=== PATIENT | male | born 1990 | race Two or more races ===

== ENCOUNTER 2025-06-16 07:59 | Outpatient (CLI) | payer OTHER | END 2025-06-16 08:00 | disposition home or self-care (01) | LOC: CSHULT 07:59 | PROVIDERS: ATTEND Family Medicine | DX: R74.8 Abnormal levels of other serum enzymes (principal); E78.1 Pure hyperglyceridemia; K76.0 Fatty (change of) liver, not elsewhere classified | CPT/HCPCS: 76705 ==